=== PATIENT | female | born 1985 | race Caucasian/White ===

== ENCOUNTER 2023-03-09 20:43 | Outpatient (CLI) | payer SELFPAY | END 2023-03-09 20:44 | disposition critical access hospital (66) | LOC: EMS 20:43 | DX: T40.411A Poisoning by fentanyl or fentanyl analogs, accidental (unintentional), initial encounter (principal) | CPT/HCPCS: A0425; A0429 ==

== ENCOUNTER 2023-03-09 21:02 | Emergency (ER) | payer OTHER ==
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
[2023-03-09 21:43] LABS: BASOPHILS % (AUTO) 0.2 %; EOSINOPHILS # (AUTO) 0.1 10^3/uL (0.0-0.7); EOSINOPHILS % (AUTO) 2.7 %; HCT - HEMATOCRIT 31.6 % (37.0-47.0); HGB - HEMOGLOBIN 10.1 g/dL (12.0-16.0); LYMPHOCYTES # (AUTO) 1.1 10^3/uL (1.5-3.5); LYMPHOCYTES % (AUTO) 24.7 %; MEAN CORPUSCULAR HEMOGLOBIN 26.6 pg (27.0-31.0); MEAN CORPUSCULAR VOLUME 83.2 fL (81.0-99.0); MEAN PLATELET VOLUME 9.5 fL (7.9-10.8); MONOCYTES # (AUTO) 0.5 10^3/uL (0.0-1.0); MONOCYTES % (AUTO) 10.6 %; NEUTROPHILS # (AUTO) 2.7 10^3/uL (1.5-6.6); NEUTROPHILS % (AUTO) 61.6 %; PLT - PLATELET COUNT 228 10^3/uL (130-450); RED CELL DISTRIBUTION WIDTH 13.6 % (12.0-15.0); WHITE BLOOD COUNT 4.4 x10^3/uL (4.8-10.8)
[2023-03-09 22:03] LABS: ALBUMIN 3.7 g/dL (3.2-5.5); ALBUMIN/GLOBULIN RATIO 1.1 (1.0-2.2); BILIRUBIN,TOTAL 0.4 mg/dL (0.2-1.0); CALCIUM 8.7 mg/dL (8.5-10.3); CREATININE 0.5 mg/dL (0.4-1.0); POTASSIUM 3.7 mmol/L (3.5-5.0); TOTAL PROTEIN 7.1 g/dL (6.7-8.2)
[2023-03-10 01:29] VITALS: BP 122/68
== END 2023-03-10 01:26 | disposition home or self-care (01) ==
LOC: ED 21:02
DX: R40.0 Somnolence (principal); T40.411A Poisoning by fentanyl or fentanyl analogs, accidental (unintentional), initial encounter
CPT/HCPCS: 36415; 80053; 83690; 85025; 99283; 99284